=== PATIENT | male | born 1945 | race Caucasian/White ===

== ENCOUNTER → 2017-01-05 | Day surgery (SDC) | payer MEDICARE, BC ==
[~2017-01-05] VITALS: Ht 175.3 cm; Wt 76.3 kg
[~2017-01-05] MED LIST: *HYDROmorphone PF 1 MG VIAL PERIprocedural Use ONLY ONE; *RESP: ALBUTEROL 2.5 MG/3 ML NEB (PRN) PERIprocedural Use ONLY NEB ONE; ASPI81TA23 PO; ATOR40TA16 PO; ATROPINE SULFATE 1% OPHT SOLN 2 ML BTL ONE; BALANCED SALT SOLN OPHT IRRIG 15 ML BTL ONE; CHLORHEXIDINE GLUCONATE 2 % 1 PACK (2 CLOTHS) TOPICAL PRN; DEXAMETHASONE SOD PHOS 4 MG/ML VIAL ONE; DO NOT ADM ANY ANTICOAGULANT DRUGS PRN; EPINEPHrine HCL (1:1000) 1 MG/ML VIAL ONE; FENO160T PO; GLIM1TAB PO; LACTATED RINGER'S 1000 ML IV PRN; LIDOCAINE HCL 1% PF 5 ML SYRINGE OTHER ONE; LISI-515 PO; METF1000 PO; METOPROLOL TARTRATE 25 MG TAB PO PRN; ONDANSETRON HCL 4 MG/2 ML VIAL IV PUSH ONE; PHENYLEPH/NS 1000 MCG/10 ML SYR IV ONE; POVIDONE IODINE 5% (ANTISEPSIS KIT) 4 APPLICATIONS EACH NARE PRN; PROPOFOL 200 MG/20 ML AMP IV ONE; STERILE WATER FOR INJECTION 20 ML VIAL ONE; TOBRAMYCIN/DEXAMETHASONE OPTH OINT 3.5 GM TUBE ONE; TRIAMCINOLONE ACETONIDE/PF 40 MG/ML OPTH VIAL ONE; ceFAZolin INJ 1,000 MG VIAL ONE; ePHEDrine/NS 25 MG/5 ML SYR IV ONE
[2017-01-05] MEDS: ATROPINE SULFATE 1% OPHT SOLN 5 ML BTL LEFT EYE SCH ×4 (06:40→07:25)
[2017-01-05] MEDS: TROPICAMIDE 1% OPHT SOLN 15 ML BTL LEFT EYE SCH ×4 (06:40→07:25)
[2017-01-05] MEDS: CYCLOPENTOLATE HCL 1% OPHT SOLN 2 ML BTL LEFT EYE SCH ×4 (06:40→07:25)
[2017-01-05] MEDS: PHENYLEPHRINE HCL 2.5% OPTH SOLN 2 ML BTL LEFT EYE SCH ×4 (06:40→07:25)
[2017-01-05 06:51] LABS: AUTOMATED NEUTROPHIL # 2.7 TH/MM3 (1.8-7.7); BASOPHIL # 0.1 TH/MM3 (0-0.2); BASOPHIL % 1.1 % (0.0-2.0); EOSINOPHIL # 0.3 TH/MM3 (0-0.4); EOSINOPHIL % 5.8 % (0.0-4.0); HEMATOCRIT 42.2 % (39.0-51.0); HEMO FLAGS DIFF FINAL; LYMPHOCYTE # 1.8 TH/MM3 (1.0-4.8); MEAN CELL VOLUME 90.3 FL (80.0-100.0); MEAN CORPUSCULAR HEMOGLOBIN 30.9 PG (27.0-34.0); MEAN CORPUSCULAR HGB CONC 34.2 % (32.0-36.0); MONO % 10.1 % (0.0-8.0); PLATELET COUNT 238 TH/MM3 (150-450); RED BLOOD COUNT 4.68 MIL/MM3 (4.50-5.90); RED CELL DISTRIBUTION WIDTH 13.2 % (11.6-17.2); WHITE BLOOD COUNT 5.3 TH/MM3 (4.0-11.0)
--- NOTE | 2017-01-05 10:59 | MP ---
cc: THERESA PEREA M.D. 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 POSTOPERATIVE DIAGNOSIS TPPVX silicone oil exchange 1000 centistokes removed, 5000 centistokes instilled, inferior iridectomy left eye. SURGEON Dr. Theresa Perea ANESTHESIA General laryngeal mask anesthesia INDICATIONS Mr. Hernández is a 71-year-old gentleman with a history of complicated retinal detachment in his left eye requiring multiple surgeries. His last surgery done elsewhere included instillation of 1000 centistokes silicone oil. This has migrated into the anterior chamber over time and is causing corneal compromise and band keratopathy. The patient while wishes to proceed with silicone oil exchange using 5000 centistoke silicone oil in the hopes of decreased chance of migration. The risks and benefits of surgery were discussed with the patient and informed consent was obtained. No guarantee was made as to visual outcome. PROCEDURE He was brought to [facility] operating room one and placed on the operating table. Appropriate anesthesia monitoring devices were applied and he was placed under general anesthesia using a laryngeal mask. The left eye was identified as the operative site and then prepped and draped in the usual sterile fashion. A lid speculum was placed. A limbal based peritomy was done superotemporally to a posterior depth a 4 mm in anticipation of having to remove the 23-gauge trocar cannula and enlarge the sclerotomy for entrance of the cannula to instill the heavier oil. Using the 23-gauge trocar cannulas, one was placed 3-1/2 mm posterior to the limbus at the 3:30 o'clock position. An infusion cannula was affixed to it and it was turned. Another trocar cannula was placed in the base of the peritomy superotemporally and plugged with a scleral. Another was placed superonasally 3-1/2 mm posterior to the limbus using the viscous extractor, the silicone oil was removed through the superior temporal port. Once that had been completed, the plug was placed back in the eye and the MVR blade was used to create a shelf to corneal incision at the limbus at 12 o'clock. This was enlarged slightly larger than the width of the MVR blade and the silicone oil that was in the anterior chamber was removed. Once that had been completed using the vitrectomy cutter, a small inferior iridectomy was performed. Next, the trocar cannulas superotemporally was removed and that site enlarged to allow the 20 gauge cannula and the 5000 centistoke oil was infused into the anterior chamber. Some air was infused into the posterior chamber. Some air was placed in the anterior chamber to try and prevent any migration of the oil into the anterior chamber and then the limbal incision was closed with a single 10-0 nylon suture. Once the 5000 centistoke had been placed in the eye, the sclerotomy superotemporally was closed with a single 7-0 Vicryl suture and the conjunctiva was closed overlying it. The infusion cannula was removed and that site closed with a single 7-0 Vicryl and the superior nasal cannula was removed and that site closed with a 7-0 Vicryl. The patient had an injection of Ancef 125 mg in half cc and Decadron 2 mg in half cc and was then undraped. TobraDex ointment was placed on the cornea and the left eye was patched and shielded. He had the laryngeal mass removed in the room and was returned recovery in good condition with a head elevated position. Once the air has been absorbed overnight, we will consider a face-down positioning for 24-48 hours. MD TIFFANY Cotto/KO /10:13 AM /10:48 AM
[2017-01-05 11:15] VITALS: BP 149/84; PULSE 70; RESP 18; TEMP 98.5; O2SAT 97
--- NOTE | 2017-01-05 16:23 | EKG ---
Date Performed: 01/05/2017 Time Performed: 07:04:06 PTAGE: 71 years EKG: SINUS BRADYCARDIA INCOMPLETE RIGHT BUNDLE BRANCH BLOCK BORDERLINE ECG PREVIOUS TRACING : 02/26/2015 06.48 Compared to prior tracing no significant change DOCTOR: Jailyn Shelton Interpretating Date/Time 01/05/2017 16:22:18
== END | disposition home or self-care (01) ==
LOC: HSDC 05:45
PROVIDERS: ATTEND Ophthalmology
DX: H33.8 Other retinal detachments (principal); E11.39 Type 2 diabetes mellitus with other diabetic ophthalmic complication; I45.10 Unspecified right bundle-branch block; I10 Essential (primary) hypertension
CPT/HCPCS: 00145; 67036; 82948; 85025; 93005; 94664; C1814; J0171; J0690; J1100; J1170; J2370; J2405; J3010; J7120; J7613; J3300